=== PATIENT | male | born 1970 | race Caucasian/White ===

== ENCOUNTER 2018-02-13 21:02 | Emergency (ER) | payer SELFPAY ==
[2018-02-13 21:21] VITALS: BP 139/85
--- NOTE | 2018-02-13 21:46 | EDM.PDOC ---
ED HPI GENERAL MEDICAL PROBLEM - General Chief Complaint: Genitourinary Problem Stated Complaint: PT CAN NOT URINATE Time Seen by Provider: 02/13/18 21:36 - History of Present Illness INITIAL COMMENTS - FREE TEXT/NARRATIVE: HISTORY AND PHYSICAL: History of present illness: Patient's 47-year-old white male presents with concern of possible urinary tract infection he states he's had some discomfort with urination he denies any history of sexually transmitted diseases or concern of such she's had not sexually active and is in no behavior that he is worried about. He does have history noncemented diabetes denies fever chills nausea vomiting or flank pain Review of systems: As per history of present illness and below otherwise all systems reviewed and negative. Past medical history: As per history of present illness and as reviewed below otherwise noncontributory. Surgical history: As per history of present illness and as reviewed below otherwise noncontributory. Social history: No reported history of drug or alcohol abuse. Family history: As per history of present illness and as reviewed below otherwise noncontributory. Physical exam: HEENT: Atraumatic, normocephalic, pupils reactive, negative for conjunctival pallor or scleral icterus, mucous membranes moist, throat clear, neck supple, nontender, trachea midline. Lungs: Clear to auscultation, breath sounds equal bilaterally, chest nontender. Heart: S1S2, regular, negative for clicks, rubs, or JVD. Abdomen: Soft, nondistended, nontender. Negative for masses or hepatosplenomegaly. Negative for costovertebral tenderness. Pelvis: Stable nontender. Genitourinary: Deferred. Rectal: Deferred. Extremities: Atraumatic, negative for cords or calf pain. Neurovascular unremarkable. Neuro: Awake, alert, oriented. Cranial nerves II through XII unremarkable. Cerebellum unremarkable. Motor and sensory unremarkable throughout. Exam nonfocal. Diagnostics: UA urine culture and sensitivity Therapeutics: None Impression: 1 dysuria rule out UTI #2 history of non-insulin dependent diabetes Definitive disposition and diagnosis as appropriate pending reevaluation and review of above. bladder Pain Score (Numeric/FACES): 2 - Related Data Allergies Allergy/AdvReac Type Severity Reaction Status Date / Time No Known Allergies Allergy Verified 02/13/18 21:21 Home Meds: Home Meds Glimepiride [Amaryl] 2 mg PO DAILY 12/06/14 [History] metFORMIN [Glucophage] 500 mg PO DAILY 02/13/18 [History] Past Medical History Other Cardiovascular History: heart valve 0 Genitourinary History: Reports: Renal Calculus Psychiatric History: Reports: Anxiety, Depression Endocrine/Metabolic History: Reports: Diabetes, Type II - Past Surgical History Cardiovascular Surgical History: Reports: Valve Replacement GI Surgical History: Reports: Cholecystectomy Social & Family History - Family History Family Medical History: Noncontributory - Tobacco Use Smoking Status *Q: Never Smoker Second Hand Smoke Exposure: No - Caffeine Use Caffeine Use: Reports: Energy Drinks, Soda - Recreational Drug Use Recreational Drug Use: No ED ROS GENERAL - Review of Systems Review Of Systems: ROS reveals no pertinent complaints other than HPI. ED EXAM, GENERAL - Physical Exam Exam: See Below (See dictation) Course - Vital Signs Last Recorded V/S: Last Vital Signs Temp 36.7 C 02/13/18 21:17 Pulse 79 02/13/18 21:17 Resp 16 02/13/18 21:17 BP 139/85 02/13/18 21:17 Pulse Ox 98 02/13/18 21:17 - Orders/Labs/Meds Orders: Active Orders 24 hr Category Date Time Status CULTURE URINE [RM] Stat Lab 02/13/18 21:30 Ordered UA W/MICROSCOPIC [URIN] Stat Lab 02/13/18 21:35 Ordered Labs: Laboratory Tests 02/13/18 Range/Units 21:35 Urine Color YELLOW Urine Appearance CLEAR Urine pH 6.0 (5.0-8.0) Ur Specific [place] 1.025 (1.001-1.035) Urine Protein NEGATIVE (NEGATIVE) mg/dL Urine Glucose (UA) >=1000 (NEGATIVE) mg/dL Urine Ketones NEGATIVE (NEGATIVE) mg/dL Urine Occult Blood TRACE-INTACT (NEGATIVE) Urine Nitrite NEGATIVE (NEGATIVE) Urine Bilirubin NEGATIVE (NEGATIVE) Urine Urobilinogen 0.2 (<2.0) EU/dL Ur Leukocyte Esterase NEGATIVE (NEGATIVE) Urine RBC 1-2 (0-2/HPF) Urine WBC 0-1 (0-5/HPF) Ur Epithelial Cells RARE (NONE-FEW) Urine Bacteria RARE (NEGATIVE) Departure - Departure Time of Disposition: 23:03 Disposition: Home, Self-Care 01 Condition: Good Clinical Impression: Dysuria, Encounter for medical screening examination - Discharge Information Referrals: PCP,None [Primary Care Provider] - Forms: ED Department Discharge Additional Instructions: The following information is given to patients seen in the emergency department who are being discharged to home. This information is to outline your options for follow-up care. We provide all patients seen in our emergency department with a follow-up referral. The need for follow-up, as well as the timing and circumstances, are variable depending upon the specifics of your emergency department visit. If you don't have a primary care physician on staff, we will provide you with a referral. We always advise you to contact your personal physician following an emergency department visit to inform them of the circumstance of the visit and for follow-up with them and/or the need for any referrals to a consulting specialist. The emergency department will also refer you to a specialist when appropriate. This referral assures that you have the opportunity for followup care with a specialist. All of these measure are taken in an effort to provide you with optimal care, which includes your followup. Under all circumstances we always encourage you to contact your private physician who remains a resource for coordinating your care. When calling for followup care, please make the office aware that this follow-up is from your recent emergency room visit. If for any reason you are refused follow-up, please contact the [facility] emergency department at and asked to speak to the emergency department charge nurse. [facility] Specialty Care - Urology [address] [place] [id number] Follow-up primary medical doctor/urology as needed as discussed and return as needed as discussed - My Orders Last 24 Hours: My Active Orders 02/13/18 21:30 CULTURE URINE [RM] Stat 02/13/18 21:35 UA W/MICROSCOPIC [URIN] Stat - Assessment/Plan Last 24 Hours: My Active Orders 02/13/18 21:30 CULTURE URINE [RM] Stat 02/13/18 21:35 UA W/MICROSCOPIC [URIN] Stat
== END 2018-02-13 23:19 | disposition home or self-care (01) ==
LOC: MW.ED 21:02
DX: R30.0 Dysuria (principal); E11.9 Type 2 diabetes mellitus without complications; F41.9 Anxiety disorder, unspecified; F32.9 Major depressive disorder, single episode, unspecified; Z79.84 Long term (current) use of oral hypoglycemic drugs
CPT/HCPCS: 81001; 87086; 87491; 87591; 99284

== ENCOUNTER 2018-02-23 09:09 | Day surgery (SDC) | payer SELFPAY ==
[~2018-02-23 09:09] MED LIST: Lactated Ringers 1,000 ML IV SCH; Sodium Chloride 0.9% 10 ML Syringe FLUSH PRN; Sodium Chloride 0.9% 2.5 ML Syringe FLUSH PRN; ceFAZolin 1 GM in Premix Bag 1 BAG IV ONE
[2018-02-23] MEDS ORDERED: Propofol 200 MG/20 ML SDV ONE (11:18)
[2018-02-23] MEDS ORDERED: Lidocaine 2% 5 ML SDV ONE (11:18)
[2018-02-23] MEDS ORDERED: Midazolam 1 MG/ML 2 ML SDV ONE (11:18)
[2018-02-23] MEDS ORDERED: fentaNYL 100 MCG/2 ML SDV ONE (11:19)
--- NOTE | 2018-02-23 11:31 | PCM.PREANE ---
Preanesthetic Assessment - Anesthesia/Transfusion/Family Hx Anesthesia History: Prior Anesthesia Without Reaction Family History of Anesthesia Reaction: No Transfusion History: No Prior Transfusion(s) Intubation History: Unknown - Review of Systems General: No Symptoms Pulmonary: No Symptoms Cardiovascular: No Symptoms Gastrointestinal: No Symptoms Neurological: No Symptoms Other: Reports: None - Physical Assessment NPO Status Date: 02/22/18 NPO Status Time: 20:00 O2 Sat by Pulse Oximetry: 99 Respiratory Rate: 18 Vital Signs: Last Vital Signs Temp 36.2 C 02/23/18 09:30 Pulse 82 02/23/18 09:30 Resp 18 02/23/18 09:30 BP 113/69 02/23/18 09:30 Pulse Ox 99 02/23/18 09:30 Height: 1.75 m Weight: 97.522 kg ASA Class: 2 Mental Status: Alert & Oriented x3 Airway Class: Mallampati = 2 Dentition: Reports: Normal Dentition Thyro-Mental Finger Breadths: 3 Mouth Opening Finger Breadths: 3 ROM/Head Extension: Full Lungs: Clear to Auscultation, Normal Respiratory Effort Cardiovascular: Regular Rate, Regular Rhythm - Allergies Allergies/Adverse Reactions: Allergies Allergy/AdvReac Type Severity Reaction Status Date / Time No Known Allergies Allergy Verified 02/22/18 16:28 - Blood Blood Available: No - Anesthesia Plan Pre-Op Medication Ordered: None - Acknowledgements Anesthesia Type Planned: General Anesthesia Pt an Appropriate Candidate for the Planned Anesthesia: Yes Alternatives and Risks of Anesthesia Discussed w Pt/Guardian: Yes Pt/Guardian Understands and Agrees with Anesthesia Plan: Yes PreAnesthesia Questionnaire Cardiovascular History: Reports: Other (See Below) (s/p AVR - porcine '15 much better since, h/o pericarditis (endocarditis ?)) Gastrointestinal History: Reports: Other (See Below) (h/o pancreatitis) Other Gastrointestinal History: occasional heartburn Genitourinary History: Reports: Pyelonephritis, Renal Calculus, Other (See Below ) Other Genitourinary History: hx ureteral obstruction , urethral re-stricture Psychiatric History: Reports: Anxiety, Depression Endocrine/Metabolic History: Reports: Diabetes, Type II, Obesity/BMI 30+ - Past Surgical History Head Surgeries/Procedures: Reports: None Cardiovascular Surgical History: Reports: Valve Replacement Other Cardiovascular Surgeries/Procedures: heart valve replacement in 2014 GI Surgical History: Reports: Cholecystectomy Other Female Surgeries/Procedures: previous ureteral stent placement Male Surgical History: Reports: Other (See Below) (h/o ureteral stent placement and removal) - SUBSTANCE USE Smoking Status *Q: Never Smoker Recreational Drug Use History: No - HOME MEDS Home Medications: Home Meds Glimepiride [Amaryl] 5 mg PO DAILY 12/06/14 [History] metFORMIN [Glucophage] 500 mg PO DAILY 02/13/18 [History] - CURRENT (IN HOUSE) MEDS Current Meds: Current Medications Lactated Ringer's (Ringers, Lactated) 1,000 mls @ 100 mls/hr IV ASDIRECTED MILAGROS Last Admin: 02/23/18 09:33 Dose: 100 mls/hr Sodium Chloride (Saline Flush) 10 ml FLUSH ASDIRECTED PRN PRN Reason: Keep Vein Open Sodium Chloride (Saline Flush) 2.5 ml FLUSH ASDIRECTED PRN PRN Reason: Keep Vein Open Discontinued Medications Fentanyl (Sublimaze) Confirm Administered Dose 200 mcg .ROUTE .STK-MED ONE Stop: 02/23/18 11:20 Cefazolin Sodium/Dextrose 1 gm (/ Premix) 50 mls @ 100 mls/hr IV ONETIME ONE Stop: 02/23/18 00:30 Lidocaine (Xylocaine-Mpf 2%) Confirm Administered Dose 10 ml .ROUTE .STK-MED ONE Stop: 02/23/18 11:19 Midazolam HCl (Versed 1 Mg/Ml) Confirm Administered Dose 2 mg .ROUTE .STK-MED ONE Stop: 02/23/18 11:19 Propofol (Diprivan 20 Ml) Confirm Administered Dose 400 mg .ROUTE .STK-MED ONE Stop: 02/23/18 11:19
[2018-02-23] MEDS ORDERED: fentaNYL 100 MCG/2 ML SDV IVPUSH PRN (12:32)
--- NOTE | 2018-02-23 13:22 | OR ---
SURGEON: She Cuadra M.D. DATE OF PROCEDURE: 02/23/2018 PREOPERATIVE DIAGNOSIS: Proximal penile urethral stricture. POSTOPERATIVE DIAGNOSIS: Proximal penile urethral stricture. OPERATION: Visual urethrotomy and placement of Meyers catheter. DESCRIPTION OF PROCEDURE: The patient was given general anesthesia, placed in dorsal lithotomy position, prepped and draped in sterile drapes. The urethra scope was introduced in the urethra, which showed a proximal pendulous urethral stricture. There were actually two strictures in room. The larger one was the distal one. There probably about a cm apart in distance. The visual urethrotome was then placed in and both structures were cut in four quadrants. With that done, a 20-Hungarian catheter was placed in without difficulty. The plan is for him to leave the catheter for the next three days. He can have it taken out in the first part of the week and will go from there. The patient already knows, when this happens again, it will be open repair. OSBADLO / RAD /[id number]
--- NOTE | 2018-02-23 13:37 | PCM.POSTAN ---
POST ANESTHESIA ASSESSMENT - MENTAL STATUS Mental Status: Alert, Oriented - VITAL SIGNS Pulse Rate: 76 SaO2: 100 (room air) Resp Rate: 12 Blood Pressure: 119/69 - RESPIRATORY Respiratory Status: Respiratory Rate WNL, Airway Patent, O2 Saturation Stable - CARDIOVASCULAR CV Status: Pulse Rate WNL, Blood Pressure Stable - GASTROINTESTINAL GI Status: No Symptoms - PAIN Pain Score: 0 - POST OP HYDRATION Hydration Status: Adequate & Stable
--- NOTE | 2018-02-23 14:37 | PCM48HPAN ---
Post Anesthesia Note - EVALUATION WITHIN 48HRS OF ANESTHETIC Vital Signs in Normal Range: Yes Patient Participated in Evaluation: Yes Respiratory Function Stable: Yes Airway Patent: Yes Cardiovascular Function Stable: Yes Hydration Status Stable: Yes Pain Control Satisfactory: Yes Nausea and Vomiting Control Satisfactory: Yes Mental Status Recovered: Yes Pulse Rate: 76 Resp Rate: 12 Blood Pressure: 119/69
[2018-02-23 16:15] VITALS: BP 114/59
== END 2018-02-23 15:05 | disposition home or self-care (01) ==
LOC: MW.SDS 09:09
PROVIDERS: ATTEND Urology
DX: N35.9 Urethral stricture, unspecified (principal); N13.1 Hydronephrosis with ureteral stricture, not elsewhere classified; F41.9 Anxiety disorder, unspecified; F32.9 Major depressive disorder, single episode, unspecified; E11.9 Type 2 diabetes mellitus without complications; E66.9 Obesity, unspecified; Z95.2 Presence of prosthetic heart valve; Z79.899 Other long term (current) drug therapy; Z79.82 Long term (current) use of aspirin; Z68.31 Body mass index [BMI] 31.0-31.9, adult; Z79.84 Long term (current) use of oral hypoglycemic drugs
CPT/HCPCS: C1769; J0690; J2250; J2704; J3010; J7120

== ENCOUNTER 2020-02-21 08:28 | Day surgery (SDC) | payer OTHER ==
[~2020-02-21 08:28] MED LIST changes: +Ciprofloxacin in D5W 400 MG in Premix Bag 1 BAG IV SCH; +Sodium Chloride 0.9% 10 ML SDV IV PRN; -ceFAZolin 1 GM in Premix Bag 1 BAG IV ONE; +ceFAZolin 2 GM in Premix Bag 1 BAG IV ONE
[2020-02-21] MEDS ORDERED: Propofol 200 MG/20 ML SDV ONE (08:52)
[2020-02-21] MEDS ORDERED: fentaNYL 100 MCG/2 ML SDV ONE (08:54)
[2020-02-21] MEDS ORDERED: Ondansetron 4 MG/2 ML SDV ONE (08:55)
--- NOTE | 2020-02-21 09:00 | PCM.PREANE ---
Preanesthetic Assessment - Anesthesia/Transfusion/Family Hx Anesthesia History: Prior Anesthesia Without Reaction Family History of Anesthesia Reaction: No Transfusion History: No Prior Transfusion(s) Intubation History: Unknown - Review of Systems General: No Symptoms Pulmonary: No Symptoms Cardiovascular: No Symptoms Gastrointestinal: No Symptoms Neurological: No Symptoms Other: Reports: None - Physical Assessment Height: 5 ft 10 in Weight: 101.151 kg ASA Class: 3 Mental Status: Alert & Oriented x3 Airway Class: Mallampati = 2 Dentition: Reports: Normal Dentition, Missing Tooth/Teeth (right upper x1 and left lower x1) Thyro-Mental Finger Breadths: 3 Mouth Opening Finger Breadths: 3 ROM/Head Extension: Full Lungs: Clear to Auscultation, Normal Respiratory Effort Cardiovascular: Regular Rate, Regular Rhythm - Allergies Allergies/Adverse Reactions: Allergies Allergy/AdvReac Type Severity Reaction Status Date / Time No Known Allergies Allergy Verified 02/19/20 10:43 - Blood Blood Available: No - Anesthesia Plan Pre-Op Medication Ordered: None - Acknowledgements Anesthesia Type Planned: General Anesthesia Pt an Appropriate Candidate for the Planned Anesthesia: Yes Alternatives and Risks of Anesthesia Discussed w Pt/Guardian: Yes Pt/Guardian Understands and Agrees with Anesthesia Plan: Yes PreAnesthesia Questionnaire HEENT History: Reports: None Cardiovascular History: Reports: Hypertension, Other (See Below) (AVR 2014 ( transcatheter)) Respiratory History: Reports: None Gastrointestinal History: Reports: Other (See Below) Other Gastrointestinal History: h/o gastric ulcer, occasional heartburn, alterating diarrhea and constipation Genitourinary History: Reports: Pyelonephritis, Renal Calculus, UTI, Recurrent, Other (See Below) Other Genitourinary History: ureteral obstruction Musculoskeletal History: Reports: Arthritis Neurological History: Reports: None Psychiatric History: Reports: Anxiety, Depression Endocrine/Metabolic History: Reports: Diabetes, Type II, Obesity/BMI 30+ Hematologic History: Reports: None Immunologic History: Reports: None Oncologic (Cancer) History: Reports: None Dermatologic History: Reports: None - Past Surgical History Head Surgeries/Procedures: Reports: None HEENT Surgical History: Reports: None Cardiovascular Surgical History: Reports: Valve Replacement, Other (See Below) Other Cardiovascular Surgeries/Procedures: bioprosthetic aortic heart valve replacement in 2014 Respiratory Surgical History: Reports: None GI Surgical History: Reports: Cholecystectomy Other Female Surgeries/Procedures: previous urethrotomy with ureteral stent placement Male Surgical History: Reports: Other (See Below) Endocrine Surgical History: Reports: None Neurological Surgical History: Reports: None Musculoskeletal Surgical History: Reports: None Oncologic Surgical History: Reports: None Dermatological Surgical History: Reports: None - SUBSTANCE USE Smoking Status *Q: Never Smoker - HOME MEDS Home Medications: Home Meds Glimepiride [Amaryl] 5 mg PO DAILY 12/06/14 [History] metFORMIN [Glucophage] 500 mg PO DAILY 02/13/18 [History] - CURRENT (IN HOUSE) MEDS Current Meds: Current Medications Ciprofloxacin/Dextrose 400 mg/ (Premix) 200 mls @ 200 mls/hr IV Q12H MILAGROS Discontinued Medications Cefazolin Sodium/Dextrose 2 gm (/ Premix) 50 mls @ 100 mls/hr IV ONETIME ONE Stop: 12/18/19 00:34 Lactated Ringer's (Ringers, Lactated) 1,000 mls @ 100 mls/hr IV ASDIRECTED MILAGROS Propofol (Diprivan 20 Ml) Confirm Administered Dose 200 mg .ROUTE .STK-MED ONE Stop: 02/21/20 08:53 Sodium Chloride (Saline Flush) 10 ml FLUSH ASDIRECTED PRN PRN Reason: Keep Vein Open Sodium Chloride (Saline Flush) 2.5 ml FLUSH ASDIRECTED PRN PRN Reason: Keep Vein Open Sodium Chloride (Normal Saline) 10 ml IV ASDIRECTED PRN PRN Reason: IV Use
[2020-02-21] MEDS ORDERED: Midazolam 1 MG/ML 2 ML SDV ONE (09:26)
[2020-02-21] MEDS ORDERED: HYDROmorphone 2 MG/ML Syringe ONE (09:29)
[2020-02-21] MEDS ORDERED: Lactated Ringers 1,000 ML IV SCH (10:00)
[2020-02-21] MEDS ORDERED: Bupivacaine 0.25% 10 ML SDV ONE (10:42)
[2020-02-21] MEDS ORDERED: Bupivacaine 0.25%/EPINEPHrine 1:200,000 10 ML SDV ONE (10:42)
[2020-02-21] MEDS ORDERED: Bupivacaine 0.5% 30 ML SDV ONE (10:42)
[2020-02-21] MEDS ORDERED: Bupivacaine 0.5%/EPINEPHrine 1:200,000 10 ML SDV ONE (10:43)
[2020-02-21] MEDS ORDERED: HYDROmorphone 2 MG/ML Syringe IVPUSH ONE (12:53)
[2020-02-21] MEDS ORDERED: fentaNYL 100 MCG/2 ML SDV IVPUSH PRN (12:55)
--- NOTE | 2020-02-21 13:00 | PCM.POSTAN ---
POST ANESTHESIA ASSESSMENT - MENTAL STATUS Mental Status: Alert, Oriented - VITAL SIGNS Vital Signs: Last Vital Signs Temp 36.6 C 02/21/20 12:46 Pulse 70 02/21/20 12:46 Resp 8 L 02/21/20 12:46 BP 155/92 H 02/21/20 12:46 Pulse Ox 97 02/21/20 12:46 - RESPIRATORY Respiratory Status: Respiratory Rate WNL, Airway Patent, O2 Saturation Stable - CARDIOVASCULAR CV Status: Pulse Rate WNL, Blood Pressure Stable - GASTROINTESTINAL GI Status: No Symptoms - PAIN Pain Score: 0 (Denies pain) - POST OP HYDRATION Hydration Status: Adequate & Stable - OBSERVATIONS Free Text/Narrative:: Patient denies nausea, alert and oriented to self, location, and date.
--- NOTE | 2020-02-21 13:54 | PCM.POSTAN ---
POST ANESTHESIA ASSESSMENT - MENTAL STATUS Mental Status: Alert, Oriented - VITAL SIGNS Vital Signs: Last Vital Signs Temp 36.6 C 02/21/20 12:46 Pulse 68 02/21/20 13:22 Resp 14 02/21/20 13:22 BP 133/84 02/21/20 13:22 Pulse Ox 94 L 02/21/20 13:22 - RESPIRATORY Respiratory Status: Respiratory Rate WNL, Airway Patent, O2 Saturation Stable - CARDIOVASCULAR CV Status: Pulse Rate WNL, Blood Pressure Stable - GASTROINTESTINAL GI Status: No Symptoms - PAIN Pain Score: 3 - POST OP HYDRATION Hydration Status: Adequate & Stable - OBSERVATIONS Free Text/Narrative:: No anesthesia problems
--- NOTE | 2020-02-21 14:15 | PCM48HPAN ---
Post Anesthesia Note - EVALUATION WITHIN 48HRS OF ANESTHETIC Vital Signs in Normal Range: Yes Patient Participated in Evaluation: Yes Respiratory Function Stable: Yes Airway Patent: Yes Cardiovascular Function Stable: Yes Hydration Status Stable: Yes Pain Control Satisfactory: Yes Nausea and Vomiting Control Satisfactory: Yes Mental Status Recovered: Yes Vital Signs: Last Vital Signs Temp 36.6 C 02/21/20 12:46 Pulse 68 02/21/20 13:22 Resp 14 02/21/20 13:22 BP 133/84 02/21/20 13:22 Pulse Ox 94 L 02/21/20 13:22 - COMMENTS/OBSERVATIONS Free Text/Narrative:: No anesthesia problems.
[2020-02-21 15:08] VITALS: BP 146/74; PULSE 74
--- NOTE | 2020-02-21 16:11 | OR ---
SURGEON: She Cuadra M.D. DATE OF PROCEDURE: 02/21/2020 PREOPERATIVE DIAGNOSIS: Bulbous urethral stricture. POSTOPERATIVE DIAGNOSIS: Bulbous urethral stricture. OPERATION: First-stage urethroplasty. DESCRIPTION OF PROCEDURE: The patient was given general anesthesia. He was in the dorsal lithotomy position. The external genital area and the perineum were all prepped and draped in sterile drapes. A 24-[place] sound was passed in the urethra to pinpoint the beginning of the stricture. An incision was made, carried all the way down to the urethra, which was easily identified. The urethra was cut at that point. Incision was extended into the strictured area and the urethra was sutured to the skin. These were full-thickness sutures. At that point, a 24- [place] catheter was passed through the proximal end into the bladder, which was emptied, and the same catheter was passed through the distal end without any constriction. With that done, the procedure was terminated, and the patient was moved to recovery room in good condition. I will be seeing him in the office in 1 week. OSBALDO / RAD /[id number]
[2020-02-22] MEDS ORDERED: glipiZIDE 5 MG Tab.ER PO SCH (09:00)
[2020-02-22] MEDS ORDERED: metFORMIN 500 MG Tab.ER PO SCH (09:00)
== END 2020-02-21 14:40 | disposition home or self-care (01) ==
LOC: MW.SDS 08:28
PROVIDERS: ATTEND Urology
DX: N35.912 Unspecified bulbous urethral stricture, male (principal); F41.9 Anxiety disorder, unspecified; F32.9 Major depressive disorder, single episode, unspecified; E78.00 Pure hypercholesterolemia, unspecified; I10 Essential (primary) hypertension; E10.9 Type 1 diabetes mellitus without complications; E66.9 Obesity, unspecified; Z68.29 Body mass index [BMI] 29.0-29.9, adult
CPT/HCPCS: 53400; 93005; J0744; J1170; J2250; J2405; J2704; J3010; J7120; 00920; J3490

== ENCOUNTER 2020-07-30 19:04 | Inpatient (IN) | payer OTHER ==
[2020-07-30] MEDS ORDERED: Sodium Chloride 0.9% 1,000 ML IV ONE (19:28)
[2020-07-30] MEDS ORDERED: Ondansetron 4 MG/2 ML SDV IVPUSH ONE (19:28)
--- NOTE | 2020-07-30 19:32 | EDM.PDOC ---
<Otto Gentile E - Last Filed: 07/30/20 21:28> ED HPI GENERAL MEDICAL PROBLEM - General Chief Complaint: Genitourinary Problem Stated Complaint: KIDNEY INFECTION Time Seen by Provider: 07/30/20 19:19 Source of Information: Reports: Patient History Limitations: Reports: No Limitations - History of Present Illness INITIAL COMMENTS - FREE TEXT/NARRATIVE: HISTORY AND PHYSICAL: History of present illness: Patient is a 50-year-old male who presents to the emergency room with complaints of nausea and vomiting since Tuesday. A kidney infection as he has flank pain bilaterally and generalized abdominal pain. He has a history of urological problems and pyelonephritis. Patient denies any fever, chills, headache, change in vision, syncope or near syncope. Denies any chest pain, shortness of breath or cough. Denies any diarrhea, constipation or dysuria. Has not noted any blood in urine or stool. Patient has been eating and drinking appropriately. He sta nataly he has no concerns for COVID-19 as he has been recently tested for this, was negative (declines wanting testing). Review of systems: As per history of present illness and below otherwise all systems reviewed and negative. Past medical history: As per history of present illness and as reviewed below otherwise noncontributory. Surgical history: As per history of present illness and as reviewed below otherwise noncontributory. Social history: See social history for further information Family history: As per history of present illness and as reviewed below otherwise noncontributory. Physical exam: General: Well developed and well nourished 50 year old male. Alert and orientated x 3. Nontoxic in appearance and in no acute distress. Vital signs are stable and have been reviewed by me. Nursing notes were reviewed. HEENT: Atraumatic, normocephalic, pupils equal and reactive bilaterally, negative for conjunctival pallor or scleral icterus, mucous membranes moist, trachea midline. No drooling or trismus noted. No meningeal signs. No hot potato voice noted. Lungs: Clear to auscultation, breath sounds equal bilaterally, chest nontender. Normal work of breathing, no accessory muscles used. Heart: S1S2, regular rate and rhythm without overt murmur Abdomen: Soft, obese, nontender. No rebound or guarding. Negative for masses or costovertebral tenderness. Skin: Intact, warm, dry. No lesions or rashes noted. Hematologic: No petechiae or purpra. Mucosa appropriate color and normal nail bed color and refill. Extremities: Atraumatic, moves all extremities per self without difficulty or deficits, negative for cords or calf pain. Neurovascular unremarkable. Neuro: Awake, alert, oriented. Cranial nerves II through XII unremarkable. Cerebellum unremarkable. Motor and sensory unremarkable throughout. Exam nonfocal. Psychiatric: Mood and affect are appropriate. Normal thought process. Answering questions appropriately. Notes: Patient's abdominal pain is generalized and is not tender with palpation. He is convinced that he has an infection or kidney stone requiring imaging. We did discuss whether or not he would be willing to allow me to do a COVID-19 swab as his symptoms are consistent. He declined stating he was swabbed a few weeks ago and was negative. He is agreeable to basic lab work and IV fluids/Zofran for his nausea. No active vomiting while here in the emergency room. BUN/Creat: 24 and 1.7, Sodium low at 130. He is receiving IV fluids. Anion negra is high 16.8; indicating DKA. Patient does take oral diabetic medications and states he had a hemoglobin A 1C in October, does not recall what it was. He has never been on subcutaneous insulin except for when he had to have surgery/stay in the hospital. The consulting radiologist called to review his CT scan. Multiple patchy rounded ground-glass pulmonary infiltrates in the lung bases, right greater than left, an appearance typical of COVID-19. CT of the abdomen shows increased splenomegaly, now prominent, with no sign of any splenic mass. New small hiatal hernia, associated with new thickening of the wall of the distal thoracic esophagus, suggesting reflux esophagitis. Stable mild enlargeme nt of the prostate. I informed patient of all diagnostics. He is now agreeable to being tested for COVID-19. COVID-19 and repeat CMP is pending. At 2200 Dr Edwards was briefed on this patient. He will follow up on patients diagnostics and disposition patient appropriately. Diagnostics: CBC, CMP, UA, Lipase, CT abdomen and pelvis without contrast, COVID-19 Therapeutics: IV fluids, Zofran, NS with 20 mEq potassium Definitive disposition and diagnosis as appropriate pending reevaluation and review of above. - Related Data Allergies Allergy/AdvReac Type Severity Reaction Status Date / Time No Known Allergies Allergy Verified 07/31/20 01:45 Home Meds: Home Meds glipiZIDE [Glipizide ER] 5 mg PO QPM 02/21/20 [History] metFORMIN HCl [Metformin HCl ER] 500 mg PO DAILY 02/21/20 [History] Past Medical History HEENT History: Reports: None Cardiovascular History: Reports: Hypertension, Other (See Below) Respiratory History: Reports: None Gastrointestinal History: Reports: Other (See Below) Other Gastrointestinal History: h/o gastric ulcer, occasional heartburn, alterating diarrhea and constipation Genitourinary History: Reports: Pyelonephritis, Renal Calculus, UTI, Recurrent, Other (See Below) Other Genitourinary History: ureteral obstruction Musculoskeletal History: Reports: Arthritis Neurological History: Reports: None Psychiatric History: Reports: Anxiety, Depression Endocrine/Metabolic History: Reports: Diabetes, Type II, Obesity/BMI 30+ Hematologic History: Reports: None Immunologic History: Reports: None Oncologic (Cancer) History: Reports: None Dermatologic History: Reports: None - Past Surgical History Head Surgeries/Procedures: Reports: None HEENT Surgical History: Reports: None Cardiovascular Surgical History: Reports: Valve Replacement, Other (See Below) Other Cardiovascular Surgeries/Procedures: bioprosthetic aortic heart valve replacement in 2014 Respiratory Surgical History: Reports: None GI Surgical History: Reports: Cholecystectomy Male Surgical History: Reports: Other (See Below) Endocrine Surgical History: Reports: None Neurological Surgical History: Reports: None Musculoskeletal Surgical History: Reports: None Oncologic Surgical History: Reports: None Dermatological Surgical History: Reports: None Social & Family History - Family History Family Medical History: Noncontributory - Caffeine Use Caffeine Use: Reports: None - Recreational Drug Use Recreational Drug Use: No ED ROS GENERAL - Review of Systems Review Of Systems: Comprehensive ROS is negative, except as noted in HPI. ED EXAM, RENAL/ - Physical Exam Exam: See Below (See dictation) Departure - Departure Disposition: Admitted As Inpatient 65 Clinical Impression: COVID-19 DKA (diabetic ketoacidoses) Qualifiers: Diabetes mellitus type: type 2 Diabetes mellitus complication detail: without coma Qualified Code(s): E11.10 - Type 2 diabetes mellitus with ketoacidosis without coma - Discharge Information Sepsis Event Note (ED) - Evaluation Sepsis Screening Result: No Definite Risk <Donnell Edwards - Last Filed: 11/05/20 02:28> ED HPI GENERAL MEDICAL PROBLEM - History of Present Illness INITIAL COMMENTS - FREE TEXT/NARRATIVE: Patient was signed out to me by [employer] Kayla Gentile pending repeat labs at 7PM I did reevaluate the patient at signout and the patient overall appeared well and was on his second liter of IV fluids. At this time given the results on the CT he did elect for COVID-19 screening. I did discuss with him at this time that given his mild DKA and COVID-19 and being that he is not insulin-dependent at home we may need to admit him to the hospital for further management. He was amenable to this plan Labs reviewed CBC was unremarkable except for thrombocytopenia with a platelet count of 98 and lymphopenia. CMP reveals anion gap metabolic acidosis with a bicarbonate of 20.5. Acute kidney injury with a creatinine of 1.7, hyperglycemia to 99. Hyperbilirubinemia with a total bilirubin of 1.2 and a mild elevation in his AST of 49. Urinalysis did show glucose urea and ketonuria with no evidence of infection. Imaging reviewed including CT abdomen pelvis without IV contrast reveals bilateral patchy groundglass pulmonary infiltrates with increased splenomegaly without any evidence of splenic mass, mild fatty infiltration of the liver with mild hepatomegaly. There is resolution of previously mild left hydronephrosis and moderate proximal left hydroureter. Moderate wall thickening of the urinary bladder. No significant abnormality of the right kidney or ureter. Repeat laboratory analysis revealed continued mild anion gap metabolic acidosis with a bicarbonate of 20.2 and an improving creatinine at 1.5. Glucose remained elevated at 271. There is also hypoalbuminemia at 2.8. COVID-19 was positive. After repeat laboratory analysis we did encourage p.o. fluid intake and administered the patient 10 units of subq insulin. I did contact hospitalist Dr. Campbell who accepted the patient for admission. DISPOSITION: The patient was admitted to the hospital in stable condition CONDITION: Fair PROCEDURES: None FINAL IMPRESSION(S)/DIAGNOSES: 1. Acute anion gap metabolic acidosis secondary to mild diabetic ketoacidosis 2. Acute mild diabetic ketoacidosis 3. Acute COVID-19 infection 4. Thrombocytopenia 5. Hypoalbuminemia Donnell Edwards M.D. Course - Vital Signs Last Recorded V/S: Last Vital Signs Temp 37.1 C 07/31/20 01:44 Pulse 91 07/31/20 01:44 Resp 18 07/31/20 01:44 BP 135/82 07/31/20 01:44 Pulse Ox 94 L 07/31/20 01:44 - Orders/Labs/Meds Orders: Active Orders 24 hr Category Date Time Status Glucose [Blood Glucose Check, Bedside] [RC] ONETIME Care 07/30/20 21:14 Active NS + KCl 20mEq/L [Normal Saline with 20 mEq KCl] 1,000 Med 07/30/20 21:15 Active ml IV ASDIRECTED Medication Orders Dextrose/Water (Dextrose 50% In Water) 50 ml IV ASDIRECTED PRN PRN Reason: Hypoglycemia Dextrose/Water (Dextrose 50% In Water) 50 ml IV ASDIRECTED PRN PRN Reason: Hypoglycemia Enoxaparin Sodium (Lovenox) 40 mg SUBCUT Q24H [facility] Last Admin: 07/31/20 01:36 Dose: 40 mg Documented by: MARI Glucagon (Glucagen) 1 mg IM ASDIRECTED PRN PRN Reason: Hypoglycemia Glucagon (Glucagen) 1 mg IM ASDIRECTED PRN PRN Reason: Hypoglycemia Potassium Chloride/Sodium Chloride (Normal Saline With 20 Meq Kcl) 1,000 mls @ 999 mls/hr IV ASDIRECTED MILAGROS Last Admin: 07/30/20 21:10 Dose: 999 mls/hr Documented by: ANGELICA Sodium Chloride (Normal Saline) 1,000 mls @ 125 mls/hr IV ASDIRECTED MILAGROS Stop: 07/31/20 09:14 Last Admin: 07/31/20 01:38 Dose: 125 mls/hr Documented by: MARI Insulin Aspart (Novolog) 0 unit SUBCUT Q6H [facility]; Protocol Last Admin: 07/31/20 01:36 Dose: 2 units Documented by: MARI Ondansetron HCl (Zofran) 4 mg IVPUSH Q4H PRN PRN Reason: Nausea Labs: Laboratory Tests 07/30/20 07/30/20 07/30/20 Range/Units 19:20 19:20 19:29 WBC 7.72 (4.0-11.0) K/uL RBC 5.68 (4.50-5.90) M/uL Hgb 16.6 (13.0-17.0) g/dL Hct 46.2 (38.0-50.0) % MCV 81.3 (80.0-98.0) fL MCH 29.2 (27.0-32.0) pg MCHC 35.9 (31.0-37.0) g/dL RDW Std Deviation 42.7 (28.0-62.0) fl RDW Coeff of Clarisa 14 (11.0-15.0) % Plt Count 98 L (150-400) K/uL MPV 11.20 (7.40-12.00) fL Neut % (Auto) 82.2 H (48.0-80.0) % Lymph % (Auto) 8.8 L (16.0-40.0) % [place] % (Auto) 8.9 (0.0-15.0) % Eos % (Auto) 0.0 (0.0-7.0) % Baso % (Auto) 0.1 (0.0-1.5) % Neut # (Auto) 6.3 H (1.4-5.7) K/uL Lymph # (Auto) 0.7 (0.6-2.4) K/uL [place] # (Auto) 0.7 (0.0-0.8) K/uL Eos # (Auto) 0.0 (0.0-0.7) K/uL Baso # (Auto) 0.0 (0.0-0.1) K/uL Nucleated RBC % 0.0 /100WBC Nucleated RBCs # 0 K/uL Sodium 130 L (136-148) mmol/L Potassium 4.1 (3.5-5.1) mmol/L Chloride 94 L (98-107) mmol/L Carbon Dioxide 20.5 L (21.0-32.0) mmol/L BUN 24 H (7.0-18.0) mg/dL Creatinine 1.7 H (0.8-1.3) mg/dL Est Cr Clr Drug Dosing 53.08 mL/min Estimated GFR (MDRD) 42.7 ml/min Glucose 299 H (74-106) mg/dL POC Glucose (60-110) mg/dL Calcium 8.5 (8.5-10.1) mg/dL Total Bilirubin 1.2 H (0.2-1.0) mg/dL AST 49 H (15-37) IU/L ALT 45 (14-63) IU/L Alkaline Phosphatase 79 (46-116) U/L Total Protein 7.8 (6.4-8.2) g/dL Albumin 3.5 (3.4-5.0) g/dL Globulin 4.3 H (2.6-4.0) g/dL Albumin/Globulin Ratio 0.8 L (0.9-1.6) Lipase 136 (73-393) U/L Urine Color YELLOW Urine Appearance CLEAR Urine pH 5.5 (5.0-8.0) Ur Specific [place] >= 1.030 (1.001-1.035) Urine Protein 100 H (NEGATIVE) mg/dL Urine Glucose (UA) 500 H (NEGATIVE) mg/dL Urine Ketones 40 H (NEGATIVE) mg/dL Urine Occult Blood MODERATE H (NEGATIVE) Urine Nitrite NEGATIVE (NEGATIVE) Urine Bilirubin SMALL H (NEGATIVE) Urine Ictotest NEGATIVE Urine Urobilinogen 0.2 (<2.0) EU/dL Ur Leukocyte Esterase NEGATIVE (NEGATIVE) Urine RBC 1-3 (0-2/HPF) Urine WBC 1-2 (0-5/HPF) Ur Epithelial Cells RARE (NONE-FEW) Amorphous Sediment LIGHT (NEGATIVE) Urine Bacteria FEW (NEGATIVE) SARS-CoV-2 RNA (MARIA L) (NEGATIVE) 07/30/20 07/30/20 07/30/20 Range/Units 21:28 22:14 22:15 WBC (4.0-11.0) K/uL RBC (4.50-5.90) M/uL Hgb (13.0-17.0) g/dL Hct (38.0-50.0) % MCV (80.0-98.0) fL MCH (27.0-32.0) pg MCHC (31.0-37.0) g/dL RDW Std Deviation (28.0-62.0) fl RDW Coeff of Clarisa (11.0-15.0) % Plt Count (150-400) K/uL MPV (7.40-12.00) fL Neut % (Auto) (48.0-80.0) % Lymph % (Auto) (16.0-40.0) % [place] % (Auto) (0.0-15.0) % Eos % (Auto) (0.0-7.0) % Baso % (Auto) (0.0-1.5) % Neut # (Auto) (1.4-5.7) K/uL Lymph # (Auto) (0.6-2.4) K/uL [place] # (Auto) (0.0-0.8) K/uL Eos # (Auto) (0.0-0.7) K/uL Baso # (Auto) (0.0-0.1) K/uL Nucleated RBC % /100WBC Nucleated RBCs # K/uL Sodium 132 L (136-148) mmol/L Potassium 4.7 (3.5-5.1) mmol/L Chloride 99 (98-107) mmol/L Carbon Dioxide 20.2 L (21.0-32.0) mmol/L BUN 24 H (7.0-18.0) mg/dL Creatinine 1.5 H (0.8-1.3) mg/dL Est Cr Clr Drug Dosing 60.16 mL/min Estimated GFR (MDRD) 49.3 ml/min Glucose 271 H (74-106) mg/dL POC Glucose 255 H (60-110) mg/dL Calcium 7.5 L (8.5-10.1) mg/dL Total Bilirubin 0.9 (0.2-1.0) mg/dL AST 44 H (15-37) IU/L ALT 35 (14-63) IU/L Alkaline Phosphatase 68 (46-116) U/L Total Protein 6.5 (6.4-8.2) g/dL Albumin 2.8 L (3.4-5.0) g/dL Globulin 3.7 (2.6-4.0) g/dL Albumin/Globulin Ratio 0.8 L (0.9-1.6) Lipase (73-393) U/L Urine Color Urine Appearance Urine pH (5.0-8.0) Ur Specific [place] (1.001-1.035) Urine Protein (NEGATIVE) mg/dL Urine Glucose (UA) (NEGATIVE) mg/dL Urine Ketones (NEGATIVE) mg/dL Urine Occult Blood (NEGATIVE) Urine Nitrite (NEGATIVE) Urine Bilirubin (NEGATIVE) Urine Ictotest Urine Urobilinogen (<2.0) EU/dL Ur Leukocyte Esterase (NEGATIVE) Urine RBC (0-2/HPF) Urine WBC (0-5/HPF) Ur Epithelial Cells (NONE-FEW) Amorphous Sediment (NEGATIVE) Urine Bacteria (NEGATIVE) SARS-CoV-2 RNA (MARIA L) POSITIVE H (NEGATIVE) Meds: Medications Generic Name Dose Route Start Last Admin Trade Name Marah PRN Reason Stop Dose Admin Dextrose/Water 50 ml 07/30/20 23:26 Dextrose 50% In Water IV ASDIRECTED PRN Hypoglycemia Dextrose/Water 50 ml 07/31/20 01:09 Dextrose 50% In Water IV ASDIRECTED PRN Hypoglycemia Enoxaparin Sodium 40 mg 07/31/20 01:15 07/31/20 01:36 Lovenox SUBCUT 40 mg Q24H MILAGROS Administration Glucagon 1 mg 07/30/20 23:26 Glucagen IM ASDIRECTED PRN Hypoglycemia Glucagon 1 mg 07/31/20 01:09 Glucagen IM ASDIRECTED PRN Hypoglycemia Potassium Chloride/Sodium Chloride 1,000 mls @ 999 mls/hr 07/30/20 21:15 07/30/20 21:10 Normal Saline With 20 Meq Kcl IV 999 mls/hr ASDIRECTED MILAGROS Administration Sodium Chloride 1,000 mls @ 125 mls/hr 07/31/20 01:15 07/31/20 01:38 Normal Saline IV 07/31/20 09:14 125 mls/hr ASDIRECTED MILAGROS Administration Insulin Aspart 0 unit 07/31/20 01:15 07/31/20 01:36 Novolog SUBCUT 2 units Q6H MILAGROS Administration Protocol Ondansetron HCl 4 mg 07/31/20 01:11 Zofran IVPUSH Q4H PRN Nausea Discontinued Medications Generic Name Dose Route Start Last Admin Trade Name Marah PRN Reason Stop Dose Admin Acetaminophen 1,000 mg 07/30/20 23:27 07/30/20 23:40 Tylenol Extra Strength PO 07/30/20 23:28 1,000 mg ONETIME ONE Administration Sodium Chloride 1,000 mls @ 999 mls/hr 07/30/20 19:28 07/30/20 19:44 Normal Saline IV 07/30/20 20:28 999 mls/hr STAT ONE Administration Potassium Chloride 20 meq/ 50 mls @ 25 mls/hr 07/30/20 20:37 07/30/20 21:09 Premix IV 07/30/20 22:36 Not Given ONETIME ONE Lactated Ringer's 1,000 mls @ 999 mls/hr 07/30/20 20:45 Ringers, Lactated IV ASDIRECTED [facility] Insulin Human Regular 10 unit 07/30/20 23:26 07/30/20 23:42 Novolin R SUBCUT 07/30/20 23:27 10 unit ONETIME ONE Administration Protocol Ondansetron HCl 4 mg 07/30/20 19:28 07/30/20 19:44 Zofran IVPUSH 07/30/20 19:29 4 mg ONETIME ONE Administration Departure - Departure Time of Disposition: 23:30 Condition: Fair Sepsis Event Note (ED) - Focused Exam Vital Signs: Vital Signs Temp Pulse Resp BP Pulse Ox 07/30/20 21:10 93 18 138/83 96 07/30/20 19:17 36.9 C 102 H 18 140/95 H 94 L
[2020-07-30 20:16] LABS: CARBON DIOXIDE,CO2 20.5 mmol/L (21.0-32.0); POTASSIUM,K 4.1 mmol/L (3.5-5.1)
[2020-07-30] MEDS ORDERED: Potassium Chloride Riders 20 MEQ in Premix Bag 1 BAG IV ONE (20:37)
[2020-07-30] MEDS ORDERED: Lactated Ringers 1,000 ML IV SCH (20:45)
[2020-07-30] MEDS ORDERED: NS + KCl 20mEq/L 1,000 ML IV SCH (21:15)
--- NOTE | 2020-07-30 21:36 | CT ---
INDICATION: Generalized abdominal pain. Bilateral flank pain. COMPARISON: CT of the abdomen and pelvis without contrast from 02/22/2018 TECHNIQUE: CT examination of the abdomen and pelvis was performed without contrast enhancement using 3 mm thick axial sections from the lung bases through the pubic symphysis. Oral contrast was not administered. Please note that all CT scans at this facility use dose modulation, iterative reconstruction, and/or weight-based dosing when appropriate to reduce radiation dose to as low as reasonably achievable. FINDINGS: In the abdomen, the liver is now low in density, representing new fatty infiltration. There is no sign of mass. The liver has increased in size and is now mildly enlarged, measuring 21.2 centimeters in length, previously 18.7 centimeters. The spleen has increased in size and is now prominently enlarged, measuring 19.2 centimeters in length, previously 17.4 centimeters. There is no sign of any splenic mass. The pancreas and adrenals are normal in appearance. The unenhanced kidneys are normal in appearance. The previously seen mild left hydronephrosis has resolved. The moderate proximal left hydroureter has resolved. There is mild left residual distal ureteral dilatation which extends to the urinary bladder where there is moderate thickening of its wall, consistent with longstanding bladder outlet obstruction. The right kidney is normal in appearance with no sign of hydronephrosis and there is no sign of hydroureter. There is no sign of any renal or ureteral calculus on either side. Clips are again seen in the gall bladder fossa from cholecystectomy. The abdominal aorta is normal in caliber with no sign of dilatation. There is no sign of retroperitoneal mass or adenopathy. There is a new small hiatal hernia with new thickening of the wall of the inferior thoracic esophagus suggesting reflux esophagitis. The rest of the stomach, loops of small bowel, and colon in the abdomen are normal in appearance. In the pelvis, the appendix is normal in appearance with no sign of inflammatory process. There is minimal proximal sigmoid diverticulosis without evidence of diverticulitis. The loops of small bowel and colon in the pelvis are otherwise normal in appearance. The prostate remains mildly enlarged and is otherwise normal in appearance. As mentioned above, there is moderate thickening of the wall of the urinary bladder consistent with longstanding bladder outlet obstruction. The urinary bladder is only mildly full. There is no sign of pelvic or inguinal mass or adenopathy. There is no sign of free air or free fluid in the abdomen or pelvis. There are new multiple patchy rounded ground-glass infiltrates throughout the lung bases, much more prominent on the right than the left. The findings are typical of COVID-19 infection. There is no sign of any pleural effusion. The heart has increased in size slightly but remains normal in size. An aortic valve prosthesis ring is partially seen. Again seen is mild scoliosis of the lumbar spine convex towards the left. There is no change in minimal posterior subluxation of L5 on S1 with no change and moderate L5-S1 disc degenerative disease. There is a new cystic region in the left superior S1 segment adjacent to the disc space, representing new intraosseous intrusion of disc material. This is probably a chronic finding, with prominent sclerosis around this intrusion. I discussed the majority of the findings with Dr. Gentile at 2120 hours on 07/30/2020. I did not discuss the findings of reflux esophagitis or new intrusion of disc material into the left superior S1 segment with Dr. Gentile IMPRESSION: Multiple patchy rounded ground-glass pulmonary infiltrates in the lung bases, right greater than left, an appearance typical of COVID-19. CT of the abdomen shows increased splenomegaly, now prominent, with no sign of any splenic mass. New mild fatty infiltration of the liver with new mild hepatomegaly. No sign of any hepatic mass. Resolution of previously seen mild left hydronephrosis and moderate proximal left hydroureter. There is mild residual left distal hydroureter, probably related to chronic bladder outlet obstruction, with moderate thickening of the wall of the urinary bladder. No sign of any abnormality of the right kidney or ureter. New small hiatal hernia, associated with new thickening of the wall of the distal thoracic esophagus, suggesting reflux esophagitis. Again seen are changes of cholecystectomy with no sign of biliary ductal dilatation. CT of the pelvis shows normal appearance of the appendix. Moderate thickening of the wall of the urinary bladder suggests longstanding bladder outlet obstruction. Stable mild enlargement of the prostate. Please note that all CT scans at this facility use dose modulation, iterative reconstruction, and/or weight-based dosing when appropriate to reduce radiation dose to as low as reasonably achievable. Dictated by Manuel Carranza MD @ Jul 30 2020 9:11PM Signed by Dr. Manuel Carranza @ Jul 30 2020 9:34PM
[2020-07-30 22:40] LABS: CARBON DIOXIDE,CO2 20.2 mmol/L (21.0-32.0); POTASSIUM,K 4.7 mmol/L (3.5-5.1)
[2020-07-30] MEDS ORDERED: Insulin Regular, Human 100 Units/ML 10 ML Vial SUBCUT ONE (23:26)
[2020-07-30] MEDS ORDERED: Glucagon,Human Recombinant 1 MG Vial IM PRN (23:26)
[2020-07-30] MEDS ORDERED: 50% Dextrose in Water 50 ML Syringe IV PRN (23:26)
[2020-07-30] MEDS ORDERED: Acetaminophen 500 MG Tab PO ONE (23:27)
[2020-07-31] MEDS ORDERED: 50% Dextrose in Water 50 ML Syringe IV PRN (01:09)
[2020-07-31] MEDS ORDERED: Glucagon,Human Recombinant 1 MG Vial IM PRN (01:09)
[2020-07-31] MEDS ORDERED: Enoxaparin 40 MG/0.4 ML Syringe SUBCUT SCH (01:15)
[2020-07-31] MEDS ORDERED: Sodium Chloride 0.9% 1,000 ML IV SCH (01:15)
[2020-07-31] MEDS: Insulin Aspart 100 Units/ML 3 ML Pen SUBCUT SCH ×4 (01:36→16:59)
[2020-07-31] MEDS: Ondansetron 4 MG/2 ML SDV IVPUSH PRN ×2 (06:31→16:56)
[2020-07-31 07:07] LABS: CARBON DIOXIDE,CO2 25.5 mmol/L (21.0-32.0); POTASSIUM,K 4.1 mmol/L (3.5-5.1)
[2020-07-31] MEDS ORDERED: Insulin Aspart 100 Units/ML 3 ML Pen SUBCUT SCH (08:00)
[2020-07-31 11:50] LABS: HEMOGLOBIN A1C 8.5 % (4.5-6.2)
[2020-07-31] MEDS: Pantoprazole 40 MG in Sodium Chloride 0.9% 10 ML IV SCH (12:46)
--- NOTE | 2020-07-31 13:59 | PCM.HP.2 ---
H&P History of Present Illness - General Date of Service: 07/31/20 Admit Problem/Dx: Admission Diagnosis/Problem Admission Diagnosis/Problem Hypoxia Source of Information: Patient History Limitations: Reports: No Limitations - History of Present Illness Initial Comments - Free Text/Narative: Pt is a 50 y/o Gentleman who presented last night with nauseas , vomiting and abdominal pain since Tuesday. Stated it was gradual in onset of abdominal pain, 7/10 on the pain scale. Denied any alleviating of aggravating factors. Initially thought it was associated with his kideny's since he has a knonw h/o urological problems. Denies any fever, chills, no urinary changes or symptoms. States he has not has a bowel movement since Tuesday as he has not been able to keep very much down. States he has a decreased appetite. States his friend was COVID + therefore was previoulsy tested and found to be COVID negative. Upon admission was retested and found to be positive but denied and s.o.b, cough, chest pain. In the ER was given Zofran for nausea, had cbc, cmp, CT- Abdo/Pel and UA. Per results was found to have elevated sugar, ketones on UA and treated for a mild DKA with an anion gap of 16.8. Pt states he is compliant with his home regimen of metformin and glipizide, but likely was not getting the appropriate dose due to the recent vomiting. Last HGA1c tested in Oct 2019, pt does not recall results. At admission was given fluids and 10 units of insulin. This morning, his AG has closed 7.5 this morning. Abdominal pain has improved. States his nausea seems to be controlled when given Zofran, otherwise it is present and he still does not have a appetite. Denies any s.o.b, but has cough with deep inspiration and low grade fever this morning. Onset of Symptoms: Reports: Today Location: Reports: Abdomen Quality: Reports: Ache Severity: Moderate Improves with: Reports: None Worsens with: Reports: None Associated Symptoms: Reports: Cough, Loss of Appetite, Nausea/Vomiting, Weakness - Related Data Allergies/Adverse Reactions: Allergies Allergy/AdvReac Type Severity Reaction Status Date / Time No Known Allergies Allergy Verified 07/31/20 01:45 Home Medications: Home Meds glipiZIDE [Glipizide ER] 5 mg PO QPM 02/21/20 [History] metFORMIN HCl [Metformin HCl ER] 500 mg PO DAILY 02/21/20 [History] Past Medical History HEENT History: Reports: None Cardiovascular History: Reports: Hypertension, Other (See Below) Respiratory History: Reports: None Gastrointestinal History: Reports: Other (See Below) Other Gastrointestinal History: h/o gastric ulcer, occasional heartburn, alterating diarrhea and constipation Genitourinary History: Reports: Pyelonephritis, Renal Calculus, UTI, Recurrent, Other (See Below) Other Genitourinary History: ureteral obstruction Musculoskeletal History: Reports: Arthritis Neurological History: Reports: None Psychiatric History: Reports: Anxiety, Depression Endocrine/Metabolic History: Reports: Diabetes, Type II, Obesity/BMI 30+ Hematologic History: Reports: None Immunologic History: Reports: None Oncologic (Cancer) History: Reports: None Dermatologic History: Reports: None - Past Surgical History Head Surgeries/Procedures: Reports: None HEENT Surgical History: Reports: None Cardiovascular Surgical History: Reports: Valve Replacement, Other (See Below) Other Cardiovascular Surgeries/Procedures: bioprosthetic aortic heart valve replacement in 2014 Respiratory Surgical History: Reports: None GI Surgical History: Reports: Cholecystectomy Male Surgical History: Reports: Other (See Below) Endocrine Surgical History: Reports: None Neurological Surgical History: Reports: None Musculoskeletal Surgical History: Reports: None Oncologic Surgical History: Reports: None Dermatological Surgical History: Reports: None Social & Family History - Family History Family Medical History: Noncontributory - Tobacco Use Tobacco Use Status *Q: Never Tobacco User - Caffeine Use Caffeine Use: Reports: None - Recreational Drug Use Recreational Drug Use: No H&P Review of Systems - Review of Systems: Review Of Systems: Comprehensive ROS is negative, except as noted in HPI. Gastrointestinal: Reports: Abdominal Pain, Decreased Appetite, Nausea, Vomiting Exam - Exam Exam: See Below - Vital Signs Vital Signs: Last Vital Signs Temp 99.4 F 07/31/20 12:01 Pulse 96 07/31/20 12:01 Resp 18 07/31/20 12:01 BP 135/75 07/31/20 12:01 Pulse Ox 94 L 07/31/20 12:01 Weight: 220 lb - Exam General: Alert, Oriented, Cooperative HEENT: Conjunctiva Clear, EACs Clear, EOMI, Mucosa Moist & [place], PERRLA Neck: Supple, Trachea Midline Lungs: Clear to Auscultation, Normal Respiratory Effort Cardiovascular: Regular Rate, Regular Rhythm GI/Abdominal Exam: Normal Bowel Sounds, Soft, Tender ( mid epigastric tenderness). No: Guarding, Rigid, Rebound Extremities: Normal Inspection, Normal Range of Motion, Non-Tender, No Pedal Edema, Normal Capillary Refill Peripheral Pulses: 2+: Dorsalis Pedis (L), Dorsalis Pedis (R) Skin: Warm, Dry, Intact Neurological: Cranial Nerves Intact, Reflexes Equal Bilateral, Strength Equal Bilateral, Sensation Intact Neuro Extensive - Mental Status: Alert, Oriented x3, Normal Mood/Affect, Normal Cognition, Memory Intact Neuro Extensive - Motor, Sensory, Reflexes: CN II-XII Intact, Normal Gait, Normal Reflexes DTR: 2+: Bicep (L), Bicep (R), Patella (L), Patella (R) Psychiatric: Alert, Normal Affect, Normal Mood - Patient Data Lab Results Last 24 hrs: Laboratory Results - last 24 hr 07/30/20 07/30/20 07/30/20 Range/Units 19:20 19:20 19:29 WBC 7.72 (4.0-11.0) K/uL RBC 5.68 (4.50-5.90) M/uL Hgb 16.6 (13.0-17.0) g/dL Hct 46.2 (38.0-50.0) % MCV 81.3 (80.0-98.0) fL MCH 29.2 (27.0-32.0) pg MCHC 35.9 (31.0-37.0) g/dL RDW Std Deviation 42.7 (28.0-62.0) fl RDW Coeff of Clarisa 14 (11.0-15.0) % Plt Count 98 L (150-400) K/uL MPV 11.20 (7.40-12.00) fL Neut % (Auto) 82.2 H (48.0-80.0) % Lymph % (Auto) 8.8 L (16.0-40.0) % Edgar % (Auto) 8.9 (0.0-15.0) % Eos % (Auto) 0.0 (0.0-7.0) % Baso % (Auto) 0.1 (0.0-1.5) % Neut # (Auto) 6.3 H (1.4-5.7) K/uL Lymph # (Auto) 0.7 (0.6-2.4) K/uL Edgar # (Auto) 0.7 (0.0-0.8) K/uL Eos # (Auto) 0.0 (0.0-0.7) K/uL Baso # (Auto) 0.0 (0.0-0.1) K/uL Nucleated RBC % 0.0 /100WBC Nucleated RBCs # 0 K/uL Sodium 130 L (136-148) mmol/L Potassium 4.1 (3.5-5.1) mmol/L Chloride 94 L (98-107) mmol/L Carbon Dioxide 20.5 L (21.0-32.0) mmol/L BUN 24 H (7.0-18.0) mg/dL Creatinine 1.7 H (0.8-1.3) mg/dL Est Cr Clr Drug Dosing 53.08 mL/min Estimated GFR (MDRD) 42.7 ml/min Glucose 299 H (74-106) mg/dL POC Glucose (60-110) mg/dL Hemoglobin A1c (4.5-6.2) % Calcium 8.5 (8.5-10.1) mg/dL Total Bilirubin 1.2 H (0.2-1.0) mg/dL AST 49 H (15-37) IU/L ALT 45 (14-63) IU/L Alkaline Phosphatase 79 (46-116) U/L Total Protein 7.8 (6.4-8.2) g/dL Albumin 3.5 (3.4-5.0) g/dL Globulin 4.3 H (2.6-4.0) g/dL Albumin/Globulin Ratio 0.8 L (0.9-1.6) Lipase 136 (73-393) U/L Urine Color YELLOW Urine Appearance CLEAR Urine pH 5.5 (5.0-8.0) Ur Specific [place] >= 1.030 (1.001-1.035) Urine Protein 100 H (NEGATIVE) mg/dL Urine Glucose (UA) 500 H (NEGATIVE) mg/dL Urine Ketones 40 H (NEGATIVE) mg/dL Urine Occult Blood MODERATE H (NEGATIVE) Urine Nitrite NEGATIVE (NEGATIVE) Urine Bilirubin SMALL H (NEGATIVE) Urine Ictotest NEGATIVE Urine Urobilinogen 0.2 (<2.0) EU/dL Ur Leukocyte Esterase NEGATIVE (NEGATIVE) Urine RBC 1-3 (0-2/HPF) Urine WBC 1-2 (0-5/HPF) Ur Epithelial Cells RARE (NONE-FEW) Amorphous Sediment LIGHT (NEGATIVE) Urine Bacteria FEW (NEGATIVE) SARS-CoV-2 RNA (MARIA L) (NEGATIVE) 07/30/20 07/30/20 07/30/20 Range/Units 21:28 22:14 22:15 WBC (4.0-11.0) K/uL RBC (4.50-5.90) M/uL Hgb (13.0-17.0) g/dL Hct (38.0-50.0) % MCV (80.0-98.0) fL MCH (27.0-32.0) pg MCHC (31.0-37.0) g/dL RDW Std Deviation (28.0-62.0) fl RDW Coeff of Clarisa (11.0-15.0) % Plt Count (150-400) K/uL MPV (7.40-12.00) fL Neut % (Auto) (48.0-80.0) % Lymph % (Auto) (16.0-40.0) % Edgar % (Auto) (0.0-15.0) % Eos % (Auto) (0.0-7.0) % Baso % (Auto) (0.0-1.5) % Neut # (Auto) (1.4-5.7) K/uL Lymph # (Auto) (0.6-2.4) K/uL Edgar # (Auto) (0.0-0.8) K/uL Eos # (Auto) (0.0-0.7) K/uL Baso # (Auto) (0.0-0.1) K/uL Nucleated RBC % /100WBC Nucleated RBCs # K/uL Sodium 132 L (136-148) mmol/L Potassium 4.7 (3.5-5.1) mmol/L Chloride 99 (98-107) mmol/L Carbon Dioxide 20.2 L (21.0-32.0) mmol/L BUN 24 H (7.0-18.0) mg/dL Creatinine 1.5 H (0.8-1.3) mg/dL Est Cr Clr Drug Dosing 60.16 mL/min Estimated GFR (MDRD) 49.3 ml/min Glucose 271 H (74-106) mg/dL POC Glucose 255 H (60-110) mg/dL Hemoglobin A1c (4.5-6.2) % Calcium 7.5 L (8.5-10.1) mg/dL Total Bilirubin 0.9 (0.2-1.0) mg/dL AST 44 H (15-37) IU/L ALT 35 (14-63) IU/L Alkaline Phosphatase 68 (46-116) U/L Total Protein 6.5 (6.4-8.2) g/dL Albumin 2.8 L (3.4-5.0) g/dL Globulin 3.7 (2.6-4.0) g/dL Albumin/Globulin Ratio 0.8 L (0.9-1.6) Lipase (73-393) U/L Urine Color Urine Appearance Urine pH (5.0-8.0) Ur Specific [place] (1.001-1.035) Urine Protein (NEGATIVE) mg/dL Urine Glucose (UA) (NEGATIVE) mg/dL Urine Ketones (NEGATIVE) mg/dL Urine Occult Blood (NEGATIVE) Urine Nitrite (NEGATIVE) Urine Bilirubin (NEGATIVE) Urine Ictotest Urine Urobilinogen (<2.0) EU/dL Ur Leukocyte Esterase (NEGATIVE) Urine RBC (0-2/HPF) Urine WBC (0-5/HPF) Ur Epithelial Cells (NONE-FEW) Amorphous Sediment (NEGATIVE) Urine Bacteria (NEGATIVE) SARS-CoV-2 RNA (MARIA L) POSITIVE H (NEGATIVE) 07/30/20 07/31/20 07/31/20 Range/Units 23:50 00:56 01:31 WBC (4.0-11.0) K/uL RBC (4.50-5.90) M/uL Hgb (13.0-17.0) g/dL Hct (38.0-50.0) % MCV (80.0-98.0) fL MCH (27.0-32.0) pg MCHC (31.0-37.0) g/dL RDW Std Deviation (28.0-62.0) fl RDW Coeff of Clarisa (11.0-15.0) % Plt Count (150-400) K/uL MPV (7.40-12.00) fL Neut % (Auto) (48.0-80.0) % Lymph % (Auto) (16.0-40.0) % Edgar % (Auto) (0.0-15.0) % Eos % (Auto) (0.0-7.0) % Baso % (Auto) (0.0-1.5) % Neut # (Auto) (1.4-5.7) K/uL Lymph # (Auto) (0.6-2.4) K/uL Edgar # (Auto) (0.0-0.8) K/uL Eos # (Auto) (0.0-0.7) K/uL Baso # (Auto) (0.0-0.1) K/uL Nucleated RBC % /100WBC Nucleated RBCs # K/uL Sodium (136-148) mmol/L Potassium (3.5-5.1) mmol/L Chloride (98-107) mmol/L Carbon Dioxide (21.0-32.0) mmol/L BUN (7.0-18.0) mg/dL Creatinine (0.8-1.3) mg/dL Est Cr Clr Drug Dosing mL/min Estimated GFR (MDRD) ml/min Glucose (74-106) mg/dL POC Glucose 281 H 250 H 217 H (60-110) mg/dL Hemoglobin A1c (4.5-6.2) % Calcium (8.5-10.1) mg/dL Total Bilirubin (0.2-1.0) mg/dL AST (15-37) IU/L ALT (14-63) IU/L Alkaline Phosphatase (46-116) U/L Total Protein (6.4-8.2) g/dL Albumin (3.4-5.0) g/dL Globulin (2.6-4.0) g/dL Albumin/Globulin Ratio (0.9-1.6) Lipase (73-393) U/L Urine Color Urine Appearance Urine pH (5.0-8.0) Ur Specific [place] (1.001-1.035) Urine Protein (NEGATIVE) mg/dL Urine Glucose (UA) (NEGATIVE) mg/dL Urine Ketones (NEGATIVE) mg/dL Urine Occult Blood (NEGATIVE) Urine Nitrite (NEGATIVE) Urine Bilirubin (NEGATIVE) Urine Ictotest Urine Urobilinogen (<2.0) EU/dL Ur Leukocyte Esterase (NEGATIVE) Urine RBC (0-2/HPF) Urine WBC (0-5/HPF) Ur Epithelial Cells (NONE-FEW) Amorphous Sediment (NEGATIVE) Urine Bacteria (NEGATIVE) SARS-CoV-2 RNA (MARIA L) (NEGATIVE) 07/31/20 07/31/20 07/31/20 Range/Units 06:29 06:32 06:32 WBC 6.66 (4.0-11.0) K/uL RBC 5.25 (4.50-5.90) M/uL Hgb 14.9 (13.0-17.0) g/dL Hct 43.1 (38.0-50.0) % MCV 82.1 (80.0-98.0) fL MCH 28.4 (27.0-32.0) pg MCHC 34.6 (31.0-37.0) g/dL RDW Std Deviation 43.6 (28.0-62.0) fl RDW Coeff of Clarisa 15 (11.0-15.0) % Plt Count 76 L (150-400) K/uL MPV 11.40 (7.40-12.00) fL Neut % (Auto) 80.2 H (48.0-80.0) % Lymph % (Auto) 11.1 L (16.0-40.0) % Edgar % (Auto) 8.3 (0.0-15.0) % Eos % (Auto) 0.2 (0.0-7.0) % Baso % (Auto) 0.2 (0.0-1.5) % Neut # (Auto) 5.4 (1.4-5.7) K/uL Lymph # (Auto) 0.7 (0.6-2.4) K/uL Edgar # (Auto) 0.6 (0.0-0.8) K/uL Eos # (Auto) 0.0 (0.0-0.7) K/uL Baso # (Auto) 0.0 (0.0-0.1) K/uL Nucleated RBC % 0.0 /100WBC Nucleated RBCs # 0 K/uL Sodium 134 L (136-148) mmol/L Potassium 4.1 (3.5-5.1) mmol/L Chloride 101 (98-107) mmol/L Carbon Dioxide 25.5 (21.0-32.0) mmol/L BUN 23 H (7.0-18.0) mg/dL Creatinine 1.4 H (0.8-1.3) mg/dL Est Cr Clr Drug Dosing 64.45 mL/min Estimated GFR (MDRD) 53.4 ml/min Glucose 162 H (74-106) mg/dL POC Glucose 168 H (60-110) mg/dL Hemoglobin A1c (4.5-6.2) % Calcium 7.6 L (8.5-10.1) mg/dL Total Bilirubin 0.9 (0.2-1.0) mg/dL AST 44 H (15-37) IU/L ALT 37 (14-63) IU/L Alkaline Phosphatase 63 (46-116) U/L Total Protein 6.4 (6.4-8.2) g/dL Albumin 2.8 L (3.4-5.0) g/dL Globulin 3.6 (2.6-4.0) g/dL Albumin/Globulin Ratio 0.8 L (0.9-1.6) Lipase (73-393) U/L Urine Color Urine Appearance Urine pH (5.0-8.0) Ur Specific [place] (1.001-1.035) Urine Protein (NEGATIVE) mg/dL Urine Glucose (UA) (NEGATIVE) mg/dL Urine Ketones (NEGATIVE) mg/dL Urine Occult Blood (NEGATIVE) Urine Nitrite (NEGATIVE) Urine Bilirubin (NEGATIVE) Urine Ictotest Urine Urobilinogen (<2.0) EU/dL Ur Leukocyte Esterase (NEGATIVE) Urine RBC (0-2/HPF) Urine WBC (0-5/HPF) Ur Epithelial Cells (NONE-FEW) Amorphous Sediment (NEGATIVE) Urine Bacteria (NEGATIVE) SARS-CoV-2 RNA (MARIA L) (NEGATIVE) 07/31/20 07/31/20 07/31/20 Range/Units 06:32 08:30 11:58 WBC (4.0-11.0) K/uL RBC (4.50-5.90) M/uL Hgb (13.0-17.0) g/dL Hct (38.0-50.0) % MCV (80.0-98.0) fL MCH (27.0-32.0) pg MCHC (31.0-37.0) g/dL RDW Std Deviation (28.0-62.0) fl RDW Coeff of Clarisa (11.0-15.0) % Plt Count (150-400) K/uL MPV (7.40-12.00) fL Neut % (Auto) (48.0-80.0) % Lymph % (Auto) (16.0-40.0) % Edgar % (Auto) (0.0-15.0) % Eos % (Auto) (0.0-7.0) % Baso % (Auto) (0.0-1.5) % Neut # (Auto) (1.4-5.7) K/uL Lymph # (Auto) (0.6-2.4) K/uL Edgar # (Auto) (0.0-0.8) K/uL Eos # (Auto) (0.0-0.7) K/uL Baso # (Auto) (0.0-0.1) K/uL Nucleated RBC % /100WBC Nucleated RBCs # K/uL Sodium (136-148) mmol/L Potassium (3.5-5.1) mmol/L Chloride (98-107) mmol/L Carbon Dioxide (21.0-32.0) mmol/L BUN (7.0-18.0) mg/dL Creatinine (0.8-1.3) mg/dL Est Cr Clr Drug Dosing mL/min Estimated GFR (MDRD) ml/min Glucose (74-106) mg/dL POC Glucose 163 H 235 H (60-110) mg/dL Hemoglobin A1c 8.5 H (4.5-6.2) % Calcium (8.5-10.1) mg/dL Total Bilirubin (0.2-1.0) mg/dL AST (15-37) IU/L ALT (14-63) IU/L Alkaline Phosphatase (46-116) U/L Total Protein (6.4-8.2) g/dL Albumin (3.4-5.0) g/dL Globulin (2.6-4.0) g/dL Albumin/Globulin Ratio (0.9-1.6) Lipase (73-393) U/L Urine Color Urine Appearance Urine pH (5.0-8.0) Ur Specific [place] (1.001-1.035) Urine Protein (NEGATIVE) mg/dL Urine Glucose (UA) (NEGATIVE) mg/dL Urine Ketones (NEGATIVE) mg/dL Urine Occult Blood (NEGATIVE) Urine Nitrite (NEGATIVE) Urine Bilirubin (NEGATIVE) Urine Ictotest Urine Urobilinogen (<2.0) EU/dL Ur Leukocyte Esterase (NEGATIVE) Urine RBC (0-2/HPF) Urine WBC (0-5/HPF) Ur Epithelial Cells (NONE-FEW) Amorphous Sediment (NEGATIVE) Urine Bacteria (NEGATIVE) SARS-CoV-2 RNA (MARIA L) (NEGATIVE) Result Diagrams: 07/31/20 06:32 07/31/20 06:32 Sepsis Event Note - Evaluation Sepsis Screening Result: No Definite Risk - Focused Exam Vital Signs: Vital Signs Temp Pulse Resp BP Pulse Ox 07/31/20 12:01 99.4 F 96 18 135/75 94 L 07/31/20 10:08 99.5 F 07/31/20 08:18 100 F 99 18 138/71 93 L - Problem List (1) COVID-19 SNOMED Code(s): 939133648 ICD Code: U07.1 - COVID-19 Status: Acute Current Visit: Yes (2) DKA (diabetic ketoacidoses) SNOMED Code(s): 250643509, 708062437 ICD Code: E11.10 - TYPE 2 DIABETES MELLITUS WITH KETOACIDOSIS WITHOUT COMA Status: Acute Current Visit: Yes Qualifiers: Diabetes mellitus type: type 2 Diabetes mellitus complication detail: without coma Qualified Code(s): E11.10 - Type 2 diabetes mellitus with ketoacidosis without coma (3) KAVYA (acute kidney injury) SNOMED Code(s): 07159715, 51302157 ICD Code: N17.9 - ACUTE KIDNEY FAILURE, UNSPECIFIED Status: Acute Current Visit: Yes (4) Esophagitis SNOMED Code(s): 95644647 ICD Code: K20.90 - ESOPHAGITIS, UNSPECIFIED WITHOUT BLEEDING Status: Acute Current Visit: Yes Problem List Initiated/Reviewed/Updated: Yes Orders Last 24hrs: Active Orders 24 hr Category Date Time Status Admission Status [Patient Status] [ADT] Stat ADT 07/30/20 23:22 Active Antiembolic Devices [RC] PER UNIT ROUTINE Care 07/31/20 01:11 Active Blood Glucose Check, Bedside [RC] TIDMEALS Care 07/31/20 01:09 Active Intake and Output Strict [RC] ASDIRECTED Care 07/31/20 11:34 Active Oxygen Therapy [RC] PRN Care 07/31/20 01:11 Active Telemetry Monitoring [Cardiac Monitoring] [RC] Q8H Care 07/30/20 23:46 Active Up With Assistance [RC] ASDIRECTED Care 07/31/20 01:11 Active VTE/DVT Education [RC] PER UNIT ROUTINE Care 07/31/20 01:11 Active Vital Signs [RC] Q4H Care 07/31/20 01:11 Active Citizen Of [place] [employer] Diet [DIET] Diet 07/31/20 Breakfast Active Dextrose 50% in Water Med 07/30/20 23:26 Active 50 ml IV ASDIRECTED PRN Dextrose 50% in Water Med 07/31/20 01:09 Active 50 ml IV ASDIRECTED PRN Glucagon,Human Recombinant [GlucaGen] Med 07/30/20 23:26 Active 1 mg IM ASDIRECTED PRN Glucagon,Human Recombinant [GlucaGen] Med 07/31/20 01:09 Active 1 mg IM ASDIRECTED PRN Insulin Aspart [NovoLOG] Med 07/31/20 11:45 Active See Protocol SUBCUT TIDAC Ondansetron [Zofran] Med 07/31/20 01:11 Active 4 mg IVPUSH Q4H PRN Pantoprazole [ProTONIX IV] 40 mg Med 07/31/20 11:45 Active Sodium Chloride 0.9% [Normal Saline] 10 ml IV DAILY Sequential Compression Device [OM.PC] Per Unit Routine Oth 07/31/20 01:11 Ordered Resuscitation Status Routine Resus Stat 07/31/20 01:11 Ordered Medication Orders Dextrose/Water (Dextrose 50% In Water) 50 ml IV ASDIRECTED PRN PRN Reason: Hypoglycemia Dextrose/Water (Dextrose 50% In Water) 50 ml IV ASDIRECTED PRN PRN Reason: Hypoglycemia Glucagon (Glucagen) 1 mg IM ASDIRECTED PRN PRN Reason: Hypoglycemia Glucagon (Glucagen) 1 mg IM ASDIRECTED PRN PRN Reason: Hypoglycemia Pantoprazole Sodium 40 mg/ (Sodium Chloride) 10 mls @ 300 mls/hr IV DAILY MILAGROS Last Admin: 07/31/20 12:46 Dose: 300 mls/hr Documented by: MANDO Insulin Aspart (Novolog) 0 unit SUBCUT TIDAC MILAGROS; Protocol Last Admin: 07/31/20 12:05 Dose: 2 units Documented by: MANDO Ondansetron HCl (Zofran) 4 mg IVPUSH Q4H PRN PRN Reason: Nausea Last Admin: 07/31/20 06:31 Dose: 4 mg Documented by: MARI Assessment/Plan Comment:: Pt is a 50 y/o gentleman with a PMHx of DMII, CHF, HTN, and has had a cardiac valve replaced. Also has a known h/o recurrent UTI's, pyelonephritis and renal calculi. Pt presented with nauseas, vomiting and abdominal pain. Was treated for mild DKA, not found to have any renal issues per CT-abdo/pelvis except for a noted hiatial hernia with increased wall thickness likely due to reflux esop hagitis. On admission was also found to be COVID positive but does not complain of any respiratory symptoms at this time. 1.Mild DKA/ DMII: -anion gap has closed, may advance diet as tolerated with, with accu check TIDAC -Zofran Q4 for nausea. -d/c home metformin and glipizide, on low dose SSI -PPI 40 mg PO daily for gastritis/ esophagitis noted on CT-A/p and mid epigastric tenderness on physical exam. Lipase was neg therefore not pancreatitis/ neg CT for pancreatitis. -recheck HGA1c, consider diabetic consult for diabetes education. 2. COVID 19: no respiratory symptoms, 3. KAVYA: received 3L fluids, improved since admission. Currently Bun 23 CR 1.4, close to his baseline, continue to monitor with daily a.m labs. Avoid nephrotoxic agents. 4.Thrombocytopenia: 76, hold off on DVT ppx with enoxaparin, will use SCD's for now. 5. Esophagitis: 40mg Pantoprazole daily
[2020-08-01 07:01] LABS: CARBON DIOXIDE,CO2 21.5 mmol/L (21.0-32.0); POTASSIUM,K 3.4 mmol/L (3.5-5.1)
[2020-08-01] MEDS: Insulin Aspart 100 Units/ML 3 ML Pen SUBCUT SCH ×2 (09:17→12:55)
[2020-08-01] MEDS: Pantoprazole 40 MG in Sodium Chloride 0.9% 10 ML IV SCH (09:39)
[2020-08-01] MEDS: Ondansetron 4 MG/2 ML SDV IVPUSH PRN (09:40)
[2020-08-01 11:56] VITALS: BP 138/73; PULSE 94
--- NOTE | 2020-08-01 13:30 | PCM.DCSUM1 ---
<Sirena Carl - Last Filed: 08/01/20 13:31> Discharge Summary - Hospital Course Brief History: Pt is a 50 y/o Gentleman who presented last night with nauseas , vomiting and abdominal pain since Tuesday. Stated it was gradual in onset of abdominal pain,. 7/10 on the pain scale. Denied any alleviating of aggravating factors. Initially thought it was associated with his kideny's since he has a knonw h/o urological problems. Denies any fever, chills, no urinary changes or symptoms. States he has not has a bowel movement since Tuesday as he has not been able to keep very much down. States he has a decreased appetite. States his friend was COVID + therefore was previoulsy tested and found to be COVID negative. Upon admission was retested and found to be positive but denied and s.o.b, cough, chest pain. In the ER was given Zofran for nausea, had cbc, cmp, CT- Abdo/Pel and UA. Per results was found to have elevated sugar, ketones on UA and treated for a mild DKA with an anion gap of 16.8. Pt states he is compliant with his home regimen of metformin and glipizide, but likely was not getting the appropriate dose due to the recent vomiting. Last HGA1c tested in Oct 2019, pt does not recall results. At admission was given fluids and 10 units of insulin. This morning, his AG has closed 7.5 this morning. Abdominal pain has improved. States his nausea seems to be controlled when given Zofran, otherwise it is present and he still does not have a appetite. Denies any s.o.b, but has cough with deep inspiration and low grade fever this morning. Diagnosis: Stroke: No - Discharge Data Discharge Date: 08/01/20 Discharge Disposition: Home, Self-Care 01 Condition: Good - Referral to Home Health Primary Care Physician: Patrick Villeda MD - Discharge Diagnosis/Problem(s) (1) COVID-19 SNOMED Code(s): 339708297 ICD Code: U07.1 - COVID-19 Status: Acute (2) DKA (diabetic ketoacidoses) SNOMED Code(s): 408835640, 281788764 ICD Code: E11.10 - TYPE 2 DIABETES MELLITUS WITH KETOACIDOSIS WITHOUT COMA Status: Acute Qualifiers: Diabetes mellitus type: type 2 Diabetes mellitus complication detail: without coma Qualified Code(s): E11.10 - Type 2 diabetes mellitus with ketoacidosis without coma - Patient Summary/Data Hospital Course: Pt was treated for nausea, vomiting, Mild DKA and constipation. Abdominal pain resolved prior to discharge after having a bowel movement. Pt was also found to be COVID 19 positive, but did not have any respiratory symptoms; therefore was advised to adhere to quarantine for an additional 13 days. Post admission is to helio follow up with his PCP and Diabetes clinic to re-evaluate need for changes to current Diabetes regimen. Also give Zofran for 1 week 4mg Q8 hrs PRN for nausea. We recommend a light diabetic diet as tolerated, void any high acidity/ fatty meals, take 40mg pantoprazole daily for esophagitis. - Patient Instructions Diet: Usual Diet as Tolerated, Diabetic Diet Activity: As Tolerated Notify Provider of: Fever, Increased Pain, Nausea and/or Vomiting - Discharge Plan *PRESCRIPTION DRUG MONITORING PROGRAM REVIEWED*: Not Applicable *COPY OF PRESCRIPTION DRUG MONITORING REPORT IN PATIENT THIERRY: Not Applicable Prescriptions/Med Rec: Pantoprazole [ProTONIX] 40 mg PO DAILY 30 Days #30 tab.cr Ondansetron [Zofran] 4 mg PO Q8H 7 Days #21 tab Home Medications: Home Meds glipiZIDE [Glipizide ER] 5 mg PO QPM 02/21/20 [History] metFORMIN HCl [Metformin HCl ER] 500 mg PO DAILY 02/21/20 [History] Ondansetron [Zofran] 4 mg PO Q8H 7 Days #21 tab 08/01/20 [Rx] Pantoprazole [ProTONIX] 40 mg PO DAILY 30 Days #30 tab.cr 08/01/20 [Rx] Oxygen Therapy Mode: Room Air Patient Handouts: Pyelonephritis, Adult, COVID-19 Frequently Asked Questions, Ondansetron tablets, COVID-19: How to Protect Yourself and Others - CDC, Infection Prevention in the Home, Pantoprazole tablets Referrals: Patrick Villeda MD [Primary Care Provider] - 08/14/20 8:00 am (Please arrive 15mins early, bring ID, isurance information and own mask.) - Discharge Summary/Plan Comment DC Time >30 min.: No Discharge Summary/Plan Comment: -follow up PCP within 1 week -follow up with diabetic clinic to review diabetes regimen -take Zofran for nausea -take pantoprazole 1 tab daily for gastritis/esophagitis -COVID- quarantine 13 days - Patient Data Vitals - Most Recent: Last Vital Signs Temp 99.9 F 08/01/20 11:55 Pulse 94 08/01/20 11:55 Resp 18 08/01/20 11:55 BP 138/73 08/01/20 11:55 Pulse Ox 89 L 08/01/20 11:55 Weight - Most Recent: 99.79 kg I&O - Last 24 hours: Intake & Output 07/31/20 08/01/20 08/01/20 22:59 06:59 14:59 Intake Total 590 2700 Output Total 900 Balance -310 2700 Lab Results - Last 24 hrs: Laboratory Results - last 24 hr 07/31/20 08/01/20 08/01/20 Range/Units 16:53 06:15 06:15 WBC 7.35 (4.0-11.0) K/uL RBC 4.70 (4.50-5.90) M/uL Hgb 13.3 (13.0-17.0) g/dL Hct 38.0 (38.0-50.0) % MCV 80.9 (80.0-98.0) fL MCH 28.3 (27.0-32.0) pg MCHC 35.0 (31.0-37.0) g/dL RDW Std Deviation 42.8 (28.0-62.0) fl RDW Coeff of Clarisa 14 (11.0-15.0) % Plt Count 75 L (150-400) K/uL MPV 10.90 (7.40-12.00) fL Neut % (Auto) 80.4 H (48.0-80.0) % Lymph % (Auto) 9.9 L (16.0-40.0) % Boundary % (Auto) 9.7 (0.0-15.0) % Eos % (Auto) 0.0 (0.0-7.0) % Baso % (Auto) 0.0 (0.0-1.5) % Neut # (Auto) 5.9 H (1.4-5.7) K/uL Lymph # (Auto) 0.7 (0.6-2.4) K/uL Boundary # (Auto) 0.7 (0.0-0.8) K/uL Eos # (Auto) 0.0 (0.0-0.7) K/uL Baso # (Auto) 0.0 (0.0-0.1) K/uL Nucleated RBC % 0.0 /100WBC Nucleated RBCs # 0 K/uL Sodium 129 L (136-148) mmol/L Potassium 3.4 L (3.5-5.1) mmol/L Chloride 96 L (98-107) mmol/L Carbon Dioxide 21.5 (21.0-32.0) mmol/L BUN 18 (7.0-18.0) mg/dL Creatinine 1.3 (0.8-1.3) mg/dL Est Cr Clr Drug Dosing 69.41 mL/min Estimated GFR (MDRD) 58.2 ml/min Glucose 186 H (74-106) mg/dL POC Glucose 220 H (60-110) mg/dL Calcium 7.4 L (8.5-10.1) mg/dL Total Bilirubin 1.0 (0.2-1.0) mg/dL AST 78 H (15-37) IU/L ALT 43 (14-63) IU/L Alkaline Phosphatase 59 (46-116) U/L Total Protein 5.9 L (6.4-8.2) g/dL Albumin 2.5 L (3.4-5.0) g/dL Globulin 3.4 (2.6-4.0) g/dL Albumin/Globulin Ratio 0.7 L (0.9-1.6) 08/01/20 08/01/20 Range/Units 06:43 11:47 WBC (4.0-11.0) K/uL RBC (4.50-5.90) M/uL Hgb (13.0-17.0) g/dL Hct (38.0-50.0) % MCV (80.0-98.0) fL MCH (27.0-32.0) pg MCHC (31.0-37.0) g/dL RDW Std Deviation (28.0-62.0) fl RDW Coeff of Clarisa (11.0-15.0) % Plt Count (150-400) K/uL MPV (7.40-12.00) fL Neut % (Auto) (48.0-80.0) % Lymph % (Auto) (16.0-40.0) % Boundary % (Auto) (0.0-15.0) % Eos % (Auto) (0.0-7.0) % Baso % (Auto) (0.0-1.5) % Neut # (Auto) (1.4-5.7) K/uL Lymph # (Auto) (0.6-2.4) K/uL Boundary # (Auto) (0.0-0.8) K/uL Eos # (Auto) (0.0-0.7) K/uL Baso # (Auto) (0.0-0.1) K/uL Nucleated RBC % /100WBC Nucleated RBCs # K/uL Sodium (136-148) mmol/L Potassium (3.5-5.1) mmol/L Chloride (98-107) mmol/L Carbon Dioxide (21.0-32.0) mmol/L BUN (7.0-18.0) mg/dL Creatinine (0.8-1.3) mg/dL Est Cr Clr Drug Dosing mL/min Estimated GFR (MDRD) ml/min Glucose (74-106) mg/dL POC Glucose 192 H 289 H (60-110) mg/dL Calcium (8.5-10.1) mg/dL Total Bilirubin (0.2-1.0) mg/dL AST (15-37) IU/L ALT (14-63) IU/L Alkaline Phosphatase (46-116) U/L Total Protein (6.4-8.2) g/dL Albumin (3.4-5.0) g/dL Globulin (2.6-4.0) g/dL Albumin/Globulin Ratio (0.9-1.6) Med Orders - Current: Current Medications Dextrose/Water (Dextrose 50% In Water) 50 ml IV ASDIRECTED PRN PRN Reason: Hypoglycemia Dextrose/Water (Dextrose 50% In Water) 50 ml IV ASDIRECTED PRN PRN Reason: Hypoglycemia Glucagon (Glucagen) 1 mg IM ASDIRECTED PRN PRN Reason: Hypoglycemia Glucagon (Glucagen) 1 mg IM ASDIRECTED PRN PRN Reason: Hypoglycemia Pantoprazole Sodium 40 mg/ (Sodium Chloride) 10 mls @ 300 mls/hr IV DAILY [facility] Last Admin: 08/01/20 09:39 Dose: 300 mls/hr Documented by: Insulin Aspart (Novolog) 0 unit SUBCUT TIDAC [facility]; Protocol Last Admin: 08/01/20 12:55 Dose: 3 units Documented by: Ondansetron HCl (Zofran) 4 mg IVPUSH Q4H PRN PRN Reason: Nausea Last Admin: 08/01/20 09:40 Dose: 4 mg Documented by: Discontinued Medications Acetaminophen (Tylenol Extra Strength) 1,000 mg PO ONETIME ONE Stop: 07/30/20 23:28 Last Admin: 07/30/20 23:40 Dose: 1,000 mg Documented by: Enoxaparin Sodium (Lovenox) 40 mg SUBCUT Q24H [facility] Last Admin: 07/31/20 01:36 Dose: 40 mg Documented by: Sodium Chloride (Normal Saline) 1,000 mls @ 999 mls/hr IV STAT ONE Stop: 07/30/20 20:28 Last Admin: 07/30/20 19:44 Dose: 999 mls/hr Documented by: Potassium Chloride 20 meq/ (Premix) 50 mls @ 25 mls/hr IV ONETIME ONE Stop: 07/30/20 22:36 Last Admin: 07/30/20 21:09 Dose: Not Given Documented by: Lactated Ringer's (Ringers, Lactated) 1,000 mls @ 999 mls/hr IV ASDIRECTED [facility] Potassium Chloride/Sodium Chloride (Normal Saline With 20 Meq Kcl) 1,000 mls @ 999 mls/hr IV ASDIRECTED [facility] Last Admin: 07/30/20 21:10 Dose: 999 mls/hr Documented by: Sodium Chloride (Normal Saline) 1,000 mls @ 125 mls/hr IV ASDIRECTED [facility] Stop: 07/31/20 09:14 Last Admin: 07/31/20 01:38 Dose: 125 mls/hr Documented by: Insulin Aspart (Novolog) 0 unit SUBCUT Q6H [facility]; Protocol Last Admin: 07/31/20 08:33 Dose: Not Given Documented by: Insulin Aspart (Novolog) 0 unit SUBCUT Q6H [facility]; Protocol Last Admin: 07/31/20 08:32 Dose: 1 units Documented by: Insulin Human Regular (Novolin R) 10 unit SUBCUT ONETIME ONE; Protocol Stop: 07/30/20 23:27 Last Admin: 07/30/20 23:42 Dose: 10 unit Documented by: Ondansetron HCl (Zofran) 4 mg IVPUSH ONETIME ONE Stop: 07/30/20 19:29 Last Admin: 07/30/20 19:44 Dose: 4 mg Documented by: <Diogo Campbell - Last Filed: 08/02/20 15:41> Discharge Summary - Referral to [facility] Primary Care Physician: Patrick Villeda MD - Patient Data Vitals - Most Recent: Last Vital Signs Temp 37.7 C 08/01/20 11:55 Pulse 94 08/01/20 11:55 Resp 18 08/01/20 11:55 BP 138/73 08/01/20 11:55 Pulse Ox 89 L 08/01/20 11:55 Med Orders - Current: Current Medications Discontinued Medications Acetaminophen (Tylenol Extra Strength) 1,000 mg PO ONETIME ONE Stop: 07/30/20 23:28 Last Admin: 07/30/20 23:40 Dose: 1,000 mg Documented by: Dextrose/Water (Dextrose 50% In Water) 50 ml IV ASDIRECTED PRN PRN Reason: Hypoglycemia Dextrose/Water (Dextrose 50% In Water) 50 ml IV ASDIRECTED PRN PRN Reason: Hypoglycemia Enoxaparin Sodium (Lovenox) 40 mg SUBCUT Q24H [facility] Last Admin: 07/31/20 01:36 Dose: 40 mg Documented by: Glucagon (Glucagen) 1 mg IM ASDIRECTED PRN PRN Reason: Hypoglycemia Glucagon (Glucagen) 1 mg IM ASDIRECTED PRN PRN Reason: Hypoglycemia Sodium Chloride (Normal Saline) 1,000 mls @ 999 mls/hr IV STAT ONE Stop: 07/30/20 20:28 Last Admin: 07/30/20 19:44 Dose: 999 mls/hr Documented by: Potassium Chloride 20 meq/ (Premix) 50 mls @ 25 mls/hr IV ONETIME ONE Stop: 07/30/20 22:36 Last Admin: 07/30/20 21:09 Dose: Not Given Documented by: Lactated Ringer's (Ringers, Lactated) 1,000 mls @ 999 mls/hr IV ASDIRECTED [facility] Potassium Chloride/Sodium Chloride (Normal Saline With 20 Meq Kcl) 1,000 mls @ 999 mls/hr IV ASDIRECTED [facility] Last Admin: 07/30/20 21:10 Dose: 999 mls/hr Documented by: Sodium Chloride (Normal Saline) 1,000 mls @ 125 mls/hr IV ASDIRECTED [facility] Stop: 07/31/20 09:14 Last Admin: 07/31/20 01:38 Dose: 125 mls/hr Documented by: Pantoprazole Sodium 40 mg/ (Sodium Chloride) 10 mls @ 300 mls/hr IV DAILY [facility] Last Admin: 08/01/20 09:39 Dose: 300 mls/hr Documented by: Insulin Aspart (Novolog) 0 unit SUBCUT Q6H [facility]; Protocol Last Admin: 07/31/20 08:33 Dose: Not Given Documented by: Insulin Aspart (Novolog) 0 unit SUBCUT Q6H [facility]; Protocol Last Admin: 07/31/20 08:32 Dose: 1 units Documented by: Insulin Aspart (Novolog) 0 unit SUBCUT TIDAC [facility]; Protocol Last Admin: 08/01/20 12:55 Dose: 3 units Documented by: Insulin Human Regular (Novolin R) 10 unit SUBCUT ONETIME ONE; Protocol Stop: 07/30/20 23:27 Last Admin: 07/30/20 23:42 Dose: 10 unit Documented by: Ondansetron HCl (Zofran) 4 mg IVPUSH ONETIME ONE Stop: 07/30/20 19:29 Last Admin: 07/30/20 19:44 Dose: 4 mg Documented by: Ondansetron HCl (Zofran) 4 mg IVPUSH Q4H PRN PRN Reason: Nausea Last Admin: 08/01/20 09:40 Dose: 4 mg Documented by: - Free Text/Narrative Note: I have seen and evaluated the patient. I have discussed findings and treatment plan with resident. I agree with the assessment and plan in the following note.
== END 2020-08-01 13:00 | disposition home or self-care (01) | DRG 637 ==
LOC: MW.ED 19:04 → MW.MS 23:22
PROVIDERS: ADMIT Internal Medicine; ATTEND Internal Medicine
DX: E11.10 Type 2 diabetes mellitus with ketoacidosis without coma (principal); U07.1 COVID-19; N10 Acute pyelonephritis; N17.9 Acute kidney failure, unspecified; E87.2 Acidosis; I10 Essential (primary) hypertension; K25.9 Gastric ulcer, unspecified as acute or chronic, without hemorrhage or perforation; E80.6 Other disorders of bilirubin metabolism; E88.09 Other disorders of plasma-protein metabolism, not elsewhere classified; K59.00 Constipation, unspecified; N20.0 Calculus of kidney; M19.90 Unspecified osteoarthritis, unspecified site; E11.65 Type 2 diabetes mellitus with hyperglycemia; F41.9 Anxiety disorder, unspecified; F32.9 Major depressive disorder, single episode, unspecified; E66.9 Obesity, unspecified; K20.90 Esophagitis, unspecified without bleeding; D69.6 Thrombocytopenia, unspecified; Z79.899 Other long term (current) drug therapy; Z87.440 Personal history of urinary (tract) infections; Z90.49 Acquired absence of other specified parts of digestive tract; Z95.4 Presence of other heart-valve replacement; Z79.84 Long term (current) use of oral hypoglycemic drugs; Z68.31 Body mass index [BMI] 31.0-31.9, adult
CPT/HCPCS: 36415; 74176; 74176-26; 80053; 81001; 82962; 83036; 83690; 85025; 96365; 96375; 99283; 99285-25; A9270-GY; C9113; J1650; J1815-GY; J2405; J3480; J7030; U0002

== ENCOUNTER 2022-01-20 03:47 | Emergency (ER) | payer OTHER ==
[2022-01-20 04:30] LABS: BLOOD UREA NITROGEN,BUN 18 mg/dL (7.0-18.0); CARBON DIOXIDE,CO2 28.2 mmol/L (21.0-32.0); CHLORIDE,CL 100 mmol/L (98-107); GLUCOSE RANDOM 287 mg/dL (74-106); POTASSIUM,K 5.4 mmol/L (3.5-5.1); SODIUM,NA 135 mmol/L (136-148)
[2022-01-20 04:43] VITALS: BP 147/92; PULSE 87
== END 2022-01-20 05:00 ==
LOC: MW.ED 03:47
DX: R33.9 Retention of urine, unspecified (principal); N17.9 Acute kidney failure, unspecified; E11.9 Type 2 diabetes mellitus without complications; I10 Essential (primary) hypertension; E66.9 Obesity, unspecified; Z68.30 Body mass index [BMI] 30.0-30.9, adult; Z79.84 Long term (current) use of oral hypoglycemic drugs
CPT/HCPCS: 36415; 80048; 85025; 99284